=== PATIENT | male | born 1985 | race Caucasian/White ===

== ENCOUNTER 2023-08-06 10:38 | Emergency (ER) | payer OTHER, SELFPAY ==
[2023-08-06 10:39] VITALS: BP 114/80; PULSE 87; RESP 18; TEMP 36.1; O2SAT 98; BMI 28.7
--- NOTE | 2023-08-06 10:58 | EDS_ITS ---
HPI History of Present Illness Chief Complaint: Cellulitis Detail of Chief Complaint: Infection anterior left leg Informant: patient Onset/Context/Timing Onset: Today Context: Sudden Onset Timing: Continuous Quality: Swelling and erythema anterior left leg Location: Anterior left leg Current Severity: Mild Maximum Severity: Mild Worsened by: Nothing Relieved by: Nothing Associated Symptoms Associated Symptoms: Fever of 102.0 ?F yesterday Narrative Narrative: Patient is a 38-year-old male visiting from [place]. 1 year ago he had an abscess and cellulitis of the anterior left leg that required formal drainage in the OR and treatment with IV antibiotics for 1 week. He reports fever to 102.0 ?F yesterday. He thought he was coming down with something. This morning he noted redness anterior left leg. He marked the margins. The margins have not expanded since 9 AM. He also notes a bump in his left groin. He denies history medic fever, heart murmur mitral valve prolapse. He denies trauma, which was the cause of his infection a year ago He denies headache, visual, ocular auditory symptoms. He denies cardiac or respiratory symptoms. He denies GI symptoms. Prior similar symptoms: Yes Recent Illness/Hospitalization: No [facility] Medical History (Updated 08/06/23 @ 11:[address] Vincent Ann MD) Cellulitis and abscess of left leg Home Medications cephalexin 500 mg capsule 500 mg PO Q6 #28 CAPSULES 08/06/23 [Rx Last Taken Unknown] Allergy/AdvReac Type Severity Reaction Status Date / Time No Known Allergies Allergy Verified 08/06/23 10:41 Social History (Updated 08/06/23 @ 11:[address] Vincent Ann MD) Smoking Status: Never smoker substance use type: does not use ROS ROS ED Constitutional Constitutional ED: Reports chills and fever(s); Denies subjective or sweats Eyes Eyes: Denies blurry vision, change in vision or diplopia ENT ENT ED: Denies ear pain, rhinorrhea or sore throat Cardiovascular Cardiovascular: Denies chest pain or palpitations Respiratory/Chest Respiratory/Chest: Denies cough, dyspnea or dyspnea on exertion Gastrointestinal Gastrointestinal: Denies nausea or vomiting Integumentary Reports rash Neurologic Neurologic: Denies paresthesias or weakness Hematologic/Lymphatic Hematologic/Lymphatic: Reports systems reviewed and no addt'l complaints, except as documented EXAM Physical Exam Const Vital Signs: 08/06/23 10:39 Temperature 97 F L Temperature Source Temporal Pulse Rate 87 Respiratory Rate 18 Blood Pressure 114/80 Blood Pressure Mean 91 Pulse Ox 98 Oxygen Delivery Method Room Air Positive well nourished and well developed General Appearance ED: well developed and NAD HEENT Reports moist mucous membranes HEENT Narrative: Head is atraumatic and normocephalic. Ears are normal. Nares is patent. Eyes PERRL and EOMs intact bilaterally General Eye ED: Negative for pale conjunctiva or scleral icterus Neck no lymphadenopathy, supple and no JVD Resp normal respiratory effort and clear to auscultation bilaterally Cardio regular rate, regular rhythm, S1 normal heart sound, S2 normal heart sound and no murmurs Narrative: There is inguinal lymphadenopathy noted on the left. Extremity Extremity Narrative: Is erythema anterior left leg 4.5 x 9 cm. There is no lymphangitis. There is duration and edema. There is no fluctuance. There is no popliteal lymphadenopathy. Where patient had the wound I indeed in the past there is evidence of dry skin and flaking skin which may be the nidus for his infection. ET pulses palpable. Neuro oriented x3 and CN's II-XII intact bilaterally Sensorium / Orientation: alert Psych mental status grossly normal Skin Skin Narrative: Colitis anterior left leg as described under the extremity portion of the medical record. MDM MDM MDM Narrative Medical decision making narrative: Cellulitis of the leg. With him complaining of documented temperature of 102.0 ?F shaking chills blood work was obtained to assess for endorgan dysfunction as well as white count and lactate. Blood cultures were obtained. Patient was started on Unasyn since there is no concern at this time for abscess and he has no history of MRSA. History & Record Review Additional record(s) reviewed:: No prior records (Is visiting from [place].) Lab Data Attestation: I reviewed the patient's lab results. Lab results narrative: Slightly elevated at 11.8 thousand with mild shift. There is no bandemia. H&H and indices are normal. Metabolic panel is normal. There is no evidence of endorgan dysfunction. Labs: Laboratory Results - last 24 hr 08/06/23 11:00 WBC 11.8 H RBC 4.68 Hgb 14.6 Hct 42.8 MCV 91.5 MCH 31.2 MCHC 34.1 RDW Std Deviation 39.4 RDW Coeff of Ignacio 11.7 Plt Count 252 MPV 8.8 Immature Gran % (Auto) 0.400 Neut % (Auto) 83.3 H Lymph % (Auto) 9.9 L Rowan % (Auto) 5.8 Eos % (Auto) 0.3 Baso % (Auto) 0.3 Absolute Neuts (auto) 9.8 H Absolute Lymphs (auto) 1.16 Nucleated RBC % 0 Sodium 138 Potassium 3.6 Chloride 102 Carbon Dioxide 31.0 Anion Gap 5 BUN 15 Creatinine 1.02 Estim Creat Clear Calc 94.07 Est GFR (MDRD) Af Amer 104 Est GFR (MDRD) Non-Af 86 BUN/Creatinine Ratio 14.7 Glucose 92 Lactic Acid 1.8 Calcium 8.8 Total Bilirubin 0.40 AST 13 L ALT 16 Alkaline Phosphatase 68 Total Protein 7.6 Albumin 3.7 Globulin 3.9 Albumin/Globulin Ratio 0.9 Treatment and Re-Evaluation :: Has cellulitis of the anterior left leg. Patient has no SIRS criteria. Patien t's vital signs are normal. Patient is a candidate for outpatient therapy. He was discharged with prescription for cephalexin. Discharge Plan Triage Chief Complaint: Cellulitis ED Provider: Vincent Ann Dx/Rx/DC Orders Clinical Impression: Cellulitis of left leg without foot Instructions: Cellulitis Dc Prescriptions: New cephalexin [cephalexin] 500 mg capsule 500 mg PO Q6 Qty: 28 0RF Primary Care Provider: Care Physician,No Primary Referrals: [facility] Doctor,Out of [Non-Staff] - Disposition Disposition: Home, Self Care
[2023-08-06 11:15] LABS: Absolute Lymphocyte Count 1.16 X10^3/uL (0.83-4.51); Absolute Neutrophil Count 9.8 X10^3/uL (2.0-7.7); Basophil# 0.03 X10^3/uL; Basophil% 0.3 % (0-1); Eosinophil# 0.03 X10^3/uL; Eosinophils% 0.3 % (0-5); Hematocrit 42.8 % (40-54); Hemoglobin 14.6 g/dL (13.0-16.5); Lymphocyte # 1.16 X10^3/ul (0.83-4.51); Lymphocyte % 9.9 % (19-41); Mean Corp Hgb Conc 34.1 g/dL (32-36); Mean Corpuscular Hgb 31.2 pg (27.0-32.0); Mean Corpuscular Volume 91.5 fL (80-94); Mean Platelet Vol. 8.8 fl (6.2-12.0); Monocyte# 0.68 X10^3/uL; Monocyte% 5.8 % (0-10); NRBC Flagged by Analyzer 0 % (0-5); Neutrophil # 9.82 X10^3/uL (2.7-7.7); Neutrophil % 83.3 % (47-70); Platelet Count 252 K/mm3 (150-450); RBC Distribution Width CV 11.7 % (11.6-14.6); RBC Distribution Width SD 39.4 fl (35.1-43.9); Red Blood Count 4.68 M/mm3 (4.6-6.2); White Blood Count 11.8 K/mm3 (4.4-11.0)
[2023-08-06 11:28] LABS: ALB/GLOB Ratio 0.9 RATIO (0.9-2.4); AST(SGOT) 13 U/L (15-37); Alanine Aminotransfer ALT/SGPT 16 U/L (16-61); Albumin, Serum 3.7 g/dL (3.2-5.0); Alkaline Phosphatase 68 U/L (45-117); Anion Gap 5 (5-15); BUN 15 mg/dL (7-18); BUN/Creat Ratio 14.7 RATIO (10-20); Calcium,Total 8.8 mg/dL (8.5-10.1); Chloride 102 mmol/L (98-107); Creatinine, Serum 1.02 mg/dL (0.70-1.30); EST Glomerular Filtration Rate 86 mL/min (>60); Est Glom Filt Rate - Afr Amer 104 mL/min (>60); Estimated Creatinine Clearance 94.07 ml/min; Globulin 3.9 g/dL (2.2-4.2); Glucose 92 mg/dL (74-106); Potassium 3.6 mmol/L (3.5-5.1); Protein, Total 7.6 g/dL (6.4-8.2); Sodium Level 138 mmol/L (136-145)
[2023-08-06 11:42] LABS: Lactic Acid 1.8 mmol/L (0.4-1.9)
[2023-08-06] MEDS: Ampicillin/Sulbactam 3 GM in 0.9% Normal Saline (100mL MB+) 100 ML IV (11:59)
== END 2023-08-06 12:50 | disposition home or self-care (01) ==
PROVIDERS: Emergency Provider Emergency Medicine; Visit Provider Emergency Medicine
DX: L03.112 Cellulitis of left axilla (principal)
CPT/HCPCS: 80053; 83605; 85025; 87040; 96365; 99283; J7050; A4216; J0295